=== PATIENT | female | born 1965 | race Caucasian/White ===

== ENCOUNTER → 2017-09-11 | Outpatient (REF) ==
[~2017-09-11] MED LIST: IBUP-56 PO; LISI-351 PO; MELO-207 PO
[2017-09-11 09:52] LABS: LDL CHOLESTEROL 99 mg/dl
== END ==
DX: Z02.9 Encounter for administrative examinations, unspecified (principal)

== ENCOUNTER → 2018-03-26 | Outpatient (REF) ==
[2018-03-26 09:13] LABS: LDL CHOLESTEROL 110 mg/dl
== END ==
DX: Z02.9 Encounter for administrative examinations, unspecified (principal)

== ENCOUNTER → 2018-04-05 | Outpatient (CLI) | payer OTHER ==
[~2018-04-05] MED LIST changes: +CHOL10005 PO; +CYA1000 PO; +GLUC100026 PO
== END ==
LOC: LAB 09:55
PROVIDERS: ATTEND Emergency Medicine
DX: R20.8 Other disturbances of skin sensation (principal)
CPT/HCPCS: 36415; 82607

== ENCOUNTER → 2018-05-01 | Outpatient (CLI) | payer OTHER ==
--- NOTE | 2018-05-02 17:11 | RADIOLOGY IMAGING REPORT ---
FACILITY: PATIENT NAME: RAVINDER ROBLES : [id number] MR: [id number] V: [id number] EXAM DATE: ORDERING PHYSICIAN: ALEKSEY ROMAN TECHNOLOGIST: Erma Ballesteros PROCEDURE:BILATERAL DIGITAL SCREENING MAMMOGRAM WITH CAD ASSISTED INTERPRETATION & 3D TOMOSYNTHESIS COMPARISON:Prior mammograms 04/06/16, 07/14/13, 07/12/12. INDICATIONS:SCREENING FINDINGS: The breasts are heterogeneously dense which can obscure small masses. The parenchymal pattern has remained stable allowing for difference in mammographic technique & patient positioning. DIAGNOSTIC CATEGORY 1--NEGATIVE. RECOMMENDATIONS: ROUTINE MAMMOGRAM AND CLINICAL EVALUATION. IMPRESSION: BIRADS 1: Negative. No significant abnormality is seen. Dictated by: Nuria Pacheco M.D. on 05/01/2018 at 11:47 Transcribed by: IFEOMA on 05/01/2018 at 11:50 Approved by: Nuria Pacheco M.D. on 05/02/2018 at 17:10 [facility]
== END ==
LOC: MAMO 01:10
PROVIDERS: ATTEND Emergency Medicine
DX: Z12.31 Encounter for screening mammogram for malignant neoplasm of breast (principal); R01.1 Cardiac murmur, unspecified
CPT/HCPCS: 77063; 77067; 93306

== ENCOUNTER 2018-11-20 08:18 | Day surgery (SDC) | payer OTHER ==
[~2018-11-20] VITALS: Ht 165.1 cm; Wt 81.6 kg
[~2018-11-20 08:18] MED LIST changes: +LOSA25TA57 PO; +LOSA50TA80 PO; +MULT-1176 PO
[2018-11-20 08:20] VITALS: BP 137/79
[2018-11-20] MEDS ORDERED: LIDOCAINE/SOD BICARB 8.4% SYR ID ONE (08:45)
[2018-11-20] MEDS ORDERED: NORMOSOL R SOLN(*) 1000 ML BAG 1,000 ML IV PRN (08:45)
[2018-11-20] MEDS ORDERED: PROPOFOL EMUL(*) 10MG/ML 20 ML 20 ML ONE ×2 (09:26→10:17)
[2018-11-20 10:24] VITALS: BP 94/62
--- NOTE | 2018-11-20 10:32 | Short(Outpt) Discharge Summary ---
Discharge Summary Reason for Hosp/Final Diag: (1) Colon cancer screening Status: Chronic Hospital Course & Plan: Colonoscopy completed without problems; normal. Departure Discharge to: Home, Self Care Discharge Instructions Home Meds Active Scripts Losartan Potassium (LOSARTAN POTASSIUM) 50 Mg Tablet, 100 MG PO QDAY, #90 TAB 3 Refills Prov:ABELALEKSEY MD 11/15/18 Reported Medications Multivits,Ca,Minerals/Iron/Fa (WOMEN'S DAILY CAPLET) 1 Each Tablet, 1 EACH PO QDAY 11/15/18 Glucosamine Sulfate 2KCL (GLUCOSAMINE) 1,000 Mg Tablet, 1000 MG PO 04/05/18 Discontinued Reported Medications Cyanocobalamin (Vitamin B-12) (VITAMIN B-12) 1,000 Mcg Tablet, 1000 MCG PO DAILY 04/09/18 Cholecalciferol (Vitamin D3) (VITAMIN D3) 1,000 Unit Tablet, 1000 UNIT PO, TAB 04/05/18 Diet: Regular Activity: As Tolerated Special Instructions: Your colonoscopy was completed without problems and your prep was excellent (Good Job!!). Your colonoscopy was normal, no polyps, cancers, or other problems. I recommend that your next colonoscopy be in 10 years. PAULY ARIAS MD Nov 20, 2018 10:32
[2018-11-20 10:45] VITALS: BP 105/61
[2018-11-20 11:00] VITALS: BP 128/84
[2018-11-20 11:06] VITALS: BP 144/92
[2018-11-20 11:08] VITALS: BP 148/85
== END 2018-11-20 11:15 | disposition home or self-care (01) ==
LOC: OR 08:18
PROVIDERS: ATTEND Surgery
DX: Z12.11 Encounter for screening for malignant neoplasm of colon (principal); I10 Essential (primary) hypertension
CPT/HCPCS: 00812; 45378; J2704